=== PATIENT | female | born 2000 | race Hispanic/Latino ===

== ENCOUNTER 2024-10-10 00:37 | Emergency (ER) | payer BC, SELFPAY ==
[2024-10-10 00:44] VITALS: BP 138/80
--- NOTE | 2024-10-10 01:59 | ED.SKININJ ---
HPI-Injury
<HAYDEE Harrell - Last Filed: 10/10/24 03:09>
General
Chief Complaint: Bite
Source: patient
Exam Limitations: none
Time Seen by Provider: 10/10/24 01:58
Nursing documentation reviewed up to this point in time: agreed with
History of Present Illness-Injury
Initial Injury comments:
Pt is a 24 yo F w no significant PMH who presents to the ED with her sister for dog bite on the R hand x 2hours. Pt says she was playing with the dog when it latched onto her hand and broke skin. She states it was bleeding a lot and she is worried
about rabies. She states the dog is UTD on vaccinations and has not shown signs of rabies. Pt states she had her TDap shot last month. Pt denies fever, changes in color of R hand, changes in sensation or feeling in R hand.
Review of Systems
<HAYDEE Harrell - Last Filed: 10/10/24 03:09>
Review of Systems
Allergies reviewed?: Yes
Other source history: family
Constitutional: Denies fever, fatigue or chills
Respiratory: Denies cough or trouble breathing
Cardiac: Denies chest pain
ABD/GI: Denies abdominal pain, nausea or vomiting
Neurological: Denies headache, weakness or numbness
Skin Exam
<HAYDEE Harrell - Last Filed: 10/10/24 03:09>
Laceration
Right Hand:
Length in cm: 1
Orientation: diagonal
Type of Laceration: simple
Any active bleeding?: low grade venous oozing
Distal skin color and temperature: normal-warm & good color
Normal distal neurovascular exam: Yes
Range of motion: full
Phy Exam
<HAYDEE Harrell - Last Filed: 10/10/24 03:09>
General Physical Exam
General Presentation: well appearing and no apparent distress
General age: appears stated age
General Skin: warm
General Habitus: normal
General Mental: alert
General Hydration: appears well hydrated
Cardiovascular Exam
Cardiovascular Exam: regular rate/rhythm
Pulmonary Exam
Pulmonary Exam: lungs clear and no respiratory distress
Musculoskeletal Exam
Musculoskeletal Exam: neuro vasc intact
Course
<HAYDEE Harrell - Last Filed: 10/10/24 03:09>
Orders/Labs/Results
Orders:
Orders
10/10/24 02:15
Amoxicillin 875 mg/Clav 125 mg [Augmentin 875 mg/125 mg] 1 tablet PO NOW STA
Vital Signs
Initial and Last Documented VS:
Initial Vital Signs
Temp Pulse Resp BP Pulse Ox
97.4 F 88 16 138/80 97
10/10/24 00:44 10/10/24 00:44 10/10/24 00:44 10/10/24 00:44 10/10/24 00:44
Last Documented Vital Signs
Temp Pulse Resp BP Pulse Ox
97.4 F 67 16 111/72 98
10/10/24 00:44 10/10/24 02:57 10/10/24 00:44 10/10/24 02:57 10/10/24 02:57
<Apollo Glass DO - Last Filed: 10/10/24 03:03>
Orders/Labs/Results
Orders:
Orders
10/10/24 02:15
Amoxicillin 875 mg/Clav 125 mg [Augmentin 875 mg/125 mg] 1 tablet PO NOW STA
Vital Signs
Initial and Last Documented VS:
Initial Vital Signs
Temp Pulse Resp BP Pulse Ox
97.4 F 88 16 138/80 97
10/10/24 00:44 10/10/24 00:44 10/10/24 00:44 10/10/24 00:44 10/10/24 00:44
Last Documented Vital Signs
Temp Pulse Resp BP Pulse Ox
97.4 F 67 16 111/72 98
10/10/24 00:44 10/10/24 02:57 10/10/24 00:44 10/10/24 02:57 10/10/24 02:57
Procedures
<HAYDEE Harrell - Last Filed: 10/10/24 03:09>
Laceration Closure
Right Palmar Hand:
Status of Wound: clean and bite
Size of Wound in cm: 1
Description of Wound Edges: sharp
Preparation: cleaned with saline
Anesthesia: 1% Lidocaine with epi
Revision/Debridement: routine- no revision
Wound exploration: no tendon involvement
Type of Closure: interrupted sutures
Skin Closure Material: 4-0 nylon
Number of sutures: 3
Additional information:
3 total sutures placed in R palmar hand
<HAYDEE Harrell - Last Filed: 10/10/24 03:09>
*Critical Care Note
Total Time (30-74mins, 75-104mins- exclusive of procedures): Not Applicable
ED Attending Note
<HAYDEE Harrell - Last Filed: 10/10/24 03:09>
-
Portions of this chart may have been created with voice recognition software.� Occasional wrong word or��sound alike� substitutions may have occurred due to the inherent limitations of voice recognition software.
<Apollo Glass DO - Last Filed: 10/10/24 03:03>
ED Attending Note
Patient seen and examined by attending physician: Yes
I performed the substantive portion of visit, reviewed & personally made and approve the management plan that is documented in note by myself or [place].: Yes
ED Attending Note:
Pleasant 24-year-old female who presents after getting bitten on the right hand by her sisters dog. Dog is practically up-to-date on all of his shots. Sister states that he has been due for updates for the last month. Dog is otherwise healthy.
Patient was actively playing with the dog and things got a little rough. Patient states that her tetanus shot is recent within the last few months. Patient was seen in conjunction with the PA student. I have reviewed and agree with the history
and treatment plan presented. On my independent physical exam, patient is awake, alert, and oriented x3 minimal acute distress. Right hand has 3 superficial puncture wounds on the palm and one very superficial puncture room on the dorsum of the
hand. At this point we will put 1 suture in each of the puncture wounds. Patient will be started on Augmentin.
Discharge Plan
Departure
Prescriptions:
New
amoxicillin-pot clavulanate 875-125 mg tablet
1 tab PO BID Qty: 20 0RF
Referrals:
UNKNOWN - PT DOES,NOT KNOW [Family Provider] -
Interventions
Interventions:
*Risk Screen - Suicide Last Done: 10/10/24 01:19
*General Assessment Last Done: 10/10/24 01:19
*Neglect/Abuse Screening Last Done: 10/10/24 01:19
*ED COVID-19 Vaccine History Last Done: 10/10/24 01:19
ED-Skin Assessment Last Done: 10/10/24 01:23
Discharge Date and Time
Print Language: TRINIDADIAN
[2024-10-10] MEDS: AUGMENTIN 875 MG/125 MG 1 TABLET PO (02:55)
[2024-10-10 02:57] VITALS: BP 111/72
== END 2024-10-10 03:10 | disposition home or self-care (01) ==
LOC: EMR 00:37
PROVIDERS: EMERGENCY PHYSICIAN Student in an Organized Health Care Education/Training Program
DX: S61.431A Puncture wound without foreign body of right hand, initial encounter (principal); W54.0XXA Bitten by dog, initial encounter
CPT/HCPCS: 12001; 99283

== ENCOUNTER 2024-10-14 20:42 | Inpatient (IN) | payer BC, SELFPAY ==
[2024-10-14 16:09] VITALS: BP 127/87
[2024-10-14 16:32] LABS: % Basophils 0.6 % (0-2); % Eosinophils 0.6 % (0-6); % Immature Granulocytes 0.4 % (0-0.5); % Monocytes 6.5 % (1.7-9.3); % Neutrophils 67.9 % (42.2-75.2); Absolute Basophils 0.1 10^3/uL (0-0.2); Absolute Eosinophils 0.1 10^3/uL (0-0.7); Absolute Lymphocytes 2.5 10^3/uL (1.2-3.4); Absolute Monocytes 0.7 10^3/uL (0.1-0.6); Absolute Neutrophils 7.2 10^3/uL (1.4-6.5); Hematocrit 39.6 % (37.0-47.0); Hemoglobin 13.3 g/dL (12.0-16.0); Mean Corp Hgb Conc. 33.6 g/dL (33.0-37.0); Mean Corpuscular Hgb 30.8 pg (27.0-31.0); Mean Corpuscular Volume 91.7 fL (81.0-99.0); Mean Platelet Volume 9.3 fL (7.4-10.4); Nucleated Red Blood Cells % 0 %; Platelet Count 315 10^3/uL (130-400); Red Blood Cell Count 4.32 10^6/uL (4.20-5.40); Red Cell Dist. Width 12.3 % (11.5-14.5); White Blood Cell Count 10.6 10^3/uL (4.8-10.8)
[2024-10-14 16:51] LABS: ALT (SGPT) 34 U/L (0-35); AST (SGOT) 41 U/L (14-36); Albumin 4.3 g/dl (3.5-5.0); Alkaline Phosphatase 101 U/L (38-126); Blood Urea Nitrogen 12 mg/dl (7-17); Calcium 9.1 mg/dl (8.4-10.2); Carbon Dioxide 27 mmol/L (22-30); Chloride 101 mmol/L (98-107); Glucose 80 mg/dl (70-99); Potassium 3.8 mmol/L (3.5-5.1); Sodium 137 mmol/L (135-145); Total Bilirubin 0.5 mg/dl (0.2-1.3); Total Protein 7.8 g/dl (6.3-8.2); eGFR > 60.00
--- NOTE | 2024-10-14 17:58 | ED.GENMED ---
History of Present Illness
<Rona Sanchez PA-C - Last Filed: 10/14/24 23:11>
General
Chief Complaint: Skin Problem
Source: patient
Exam Limitations: none
Time Seen by Provider: 10/14/24 17:58
Nursing documentation reviewed up to this point in time: agreed with
History of Present Illness
History of Present Illness:
24-year-old female with no past medical history presents to the emergency department today with concerns of right hand swelling and white spots following the dog bite injury. Patient states that she was bitten by her dog he was up-to-date on its
vaccinations around 7 days ago. She had a few wounds on the anterior surface of her right hand. She was seen in our emergency department and she had her wound sutured and was started on a course of Augmentin. Patient is nearly finished a course
of Augmentin but noted that she started to have white spots under the sutures and noticed some mild drainage. She also started to have swelling in her hand and noticed that the swelling traveled down her arm. She is unable to extend her fourth
finger. She denies any fevers or chills, she denies any nausea or vomiting. She denies any abdominal pain.
Review of Systems
<Rona Sanchez PA-C - Last Filed: 10/14/24 23:11>
Review of Systems
All Other Systems: ROS reviewed and negative except as documented in HPI and ROS
Phy Exam
<Rona Sanchez PA-C - Last Filed: 10/14/24 23:11>
Physical Exam
Physical Exam:
General: Patient is well appearing and in no acute distress; non-toxic
Skin: Scattered pustules noted with overlying erythema to right hand, no axillary lymphadenopathy
Head: Normocephalic, atraumatic
Eyes: Sclera non-icteric. EOMs intact.
Cardiac: Regular rate and rhythm, no murmur
Peripheral Vascular: No lower EXTR swelling or edema, thickened swelling noted to right hand extending up to mid humerus
Pulm: Normal respiratory effort
Abdomen: No abdominal tenderness
Musculoskeletal: Tenderness palpation along the flexor sheath of the fourth finger, extreme pain with extension of the fourth finger
Neuro: CN II-XII intact, no focal neurologic deficits.
Psychiatric: Appropriate mood and affect.
Course
<Rona Sanchez PA-C - Last Filed: 10/14/24 23:11>
Orders/Labs/Results
Orders:
Orders
10/14/24 16:19
CMP [Comprehensive Metabolic Panel] Urgent
Complete Blood Count/With Diff Urgent
10/14/24 18:31
Ketorolac [Toradol] 15 mg IV NOW STA
10/14/24 18:38
Ampicillin/Sulbactam 3 G [Unasyn] 3 gm 0.9% Sodium Chloride 100 ml [Nss] 100 ml IV NOW
10/14/24 19:13
CR Forearm - Right 2 View Urgent
Comment:
Reason For Exam: right arm forearm
CR Hand - Right 2 Views Urgent
Comment:
Reason For Exam: right hand swelling
10/14/24 20:33
Tetanus/Diphth/Acelpertussis [Adacel] 0.5 ml IM .ONCE ONE
10/14/24 20:35
Admit/Transfer Patient As Directed
Co-Sign Provider:
Level of Care: Inpatient admission
Assign to:: Medical/Surgical
Physician / Group: hospitalist
Diagnosis: hand injury
Reason for Hospitalization: hand abscess
Expected length of stay greater than two midnights?: Yes
ELOS- Estimated Length of Stay in days: 2
I certify the patient meets the requirements for IP care: Yes
PRN Pain Medication Management As Directed
May give lesser potent ordered pain med per pt: Yes
preference::
Protocol:: Medication orders for pain may be administered in a
manner that supports deferring to patient preference
when the pt is:
- Requesting an ordered lesser potent pain medication.
Least to most potent pain medications are defined
as: acetaminophen < NSAID < tramadol < opioids
(morphine, oxycodone, hydromorphone).
- Requesting a lesser dose of the same medication IF
ORDERED.
- Requesting a less intrusive route of administration
if both routes are prescribed by the provider (PO <
IV).
10/14/24 20:36
Code Status As Directed
Resuscitation Status: Full Code
10/14/24 23:48
Acetaminophen [Tylenol] 650 mg PO Q4HPRN PRN
Bisacodyl [Dulcolax] 10 mg RECTAL [id number] PRN
Docusate W/Senna [Senokot-S] 1 tablet PO BIDPRN PRN
HYDROmorphone [Dilaudid] 0.5 mg IV Q4HPRN PRN
Ondansetron Injectable [Zofran] 4 mg IV Q6HPRN PRN
Polyethylene Glycol Powder [Miralax] 17 grams PO DAILYPRN PRN
10/14/24 23:48
Activity As Directed
Activity Level: With Assistance
Pneumatic Compression Sleeves As Directed
Type: Knee high
Vital Signs As Directed
Frequency: Per unit guidelines
DX Deep Vein Thrombosis Video Routine
10/15/24 00:00
Ampicillin/Sulbactam 3 G [Unasyn] 3 gm 0.9% Sodium Chloride 100 ml [Nss] 100 ml IV Q6H
10/15/24 01:00
Ketorolac [Toradol] 10 mg IV Q6HPRN PRN
10/15/24 Breakfast
NPO
Allow oral meds: Yes
Allow clear liquids: Sips of Clears
Basic Metabolic Panel IN AM
Complete Blood Count/No Diff IN AM
PTT IN AM
Prothrombin Time IN AM
10/16/24 18:00
Enoxaparin Sodium [Lovenox] 40 mg SC QPM
Abnormal Lab Results
10/14/24
16:19
Absolute Neuts (auto) 7.2 H 10^3/uL
(1.4-6.5)
Absolute Monos (auto) 0.7 H 10^3/uL
(0.1-0.6)
AST 41 H U/L
(14-36)
10/14/24 16:19
10/14/24 16:19
Vital Signs
Initial and Last Documented VS:
Initial Vital Signs
Temp Pulse Resp BP Pulse Ox
98.5 F 77 18 127/87 98
10/14/24 16:09 10/14/24 16:09 10/14/24 16:09 10/14/24 16:09 10/14/24 16:09
Last Documented Vital Signs
Temp Pulse Resp BP Pulse Ox
98.2 F 81 18 117/80 100
10/15/24 00:06 10/15/24 00:06 10/15/24 00:06 10/15/24 00:06 10/15/24 00:06
<Ameya Mitchell, DO - Last Filed: 10/15/24 02:43>
Orders/Labs/Results
Orders:
Orders
10/14/24 16:19
CMP [Comprehensive Metabolic Panel] Urgent
Complete Blood Count/With Diff Urgent
10/14/24 18:31
Ketorolac [Toradol] 15 mg IV NOW STA
10/14/24 18:38
Ampicillin/Sulbactam 3 G [Unasyn] 3 gm 0.9% Sodium Chloride 100 ml [Nss] 100 ml IV NOW
10/14/24 19:13
CR Forearm - Right 2 View Urgent
Comment:
Reason For Exam: right arm forearm
CR Hand - Right 2 Views Urgent
Comment:
Reason For Exam: right hand swelling
10/14/24 20:33
Tetanus/Diphth/Acelpertussis [Adacel] 0.5 ml IM .ONCE ONE
10/14/24 20:35
Admit/Transfer Patient As Directed
Co-Sign Provider:
Level of Care: Inpatient admission
Assign to:: Medical/Surgical
Physician / Group: hospitalist
Diagnosis: hand injury
Reason for Hospitalization: hand abscess
Expected length of stay greater than two midnights?: Yes
ELOS- Estimated Length of Stay in days: 2
I certify the patient meets the requirements for IP care: Yes
PRN Pain Medication Management As Directed
May give lesser potent ordered pain med per pt: Yes
preference::
Protocol:: Medication orders for pain may be administered in a
manner that supports deferring to patient preference
when the pt is:
- Requesting an ordered lesser potent pain medication.
Least to most potent pain medications are defined
as: acetaminophen < NSAID < tramadol < opioids
(morphine, oxycodone, hydromorphone).
- Requesting a lesser dose of the same medication IF
ORDERED.
- Requesting a less intrusive route of administration
if both routes are prescribed by the provider (PO <
IV).
10/14/24 20:36
Code Status As Directed
Resuscitation Status: Full Code
10/14/24 23:48
Acetaminophen [Tylenol] 650 mg PO Q4HPRN PRN
Bisacodyl [Dulcolax] 10 mg RECTAL [id number] PRN
Docusate W/Senna [Senokot-S] 1 tablet PO BIDPRN PRN
HYDROmorphone [Dilaudid] 0.5 mg IV Q4HPRN PRN
Ondansetron Injectable [Zofran] 4 mg IV Q6HPRN PRN
Polyethylene Glycol Powder [Miralax] 17 grams PO DAILYPRN PRN
10/14/24 23:48
Activity As Directed
Activity Level: With Assistance
Pneumatic Compression Sleeves As Directed
Type: Knee high
Vital Signs As Directed
Frequency: Per unit guidelines
DX Deep Vein Thrombosis Video Routine
10/15/24 00:00
Ampicillin/Sulbactam 3 G [Unasyn] 3 gm 0.9% Sodium Chloride 100 ml [Nss] 100 ml IV Q6H
10/15/24 01:00
Ketorolac [Toradol] 10 mg IV Q6HPRN PRN
10/15/24 Breakfast
NPO
Allow oral meds: Yes
Allow clear liquids: Sips of Clears
Basic Metabolic Panel IN AM
Complete Blood Count/No Diff IN AM
PTT IN AM
Prothrombin Time IN AM
10/16/24 18:00
Enoxaparin Sodium [Lovenox] 40 mg SC QPM
Abnormal Lab Results
10/14/24
16:19
Absolute Neuts (auto) 7.2 H 10^3/uL
(1.4-6.5)
Absolute Monos (auto) 0.7 H 10^3/uL
(0.1-0.6)
AST 41 H U/L
(14-36)
10/14/24 16:19
10/14/24 16:19
Vital Signs
Initial and Last Documented VS:
Initial Vital Signs
Temp Pulse Resp BP Pulse Ox
98.5 F 77 18 127/87 98
10/14/24 16:09 10/14/24 16:09 10/14/24 16:09 10/14/24 16:09 10/14/24 16:09
Last Documented Vital Signs
Temp Pulse Resp BP Pulse Ox
98.2 F 81 18 117/80 100
10/15/24 00:06 10/15/24 00:06 10/15/24 00:06 10/15/24 00:06 10/15/24 00:06
Stefanielt;Rona Sanchez PA-C - Last Filed: 10/14/24 23:11>
MDM/Problems Addressed
Differential Diagnosis Includes:
See below
MDM/Problems Addressed:
NUMBER AND COMPLEXITY OF PROBLEMS ADDRESSED AT THE ENCOUNTER
� Chronic conditions affecting care: N/A
� Acute Exacerbation and/or Progression of Chronic Illness: N/A
� Differential Diagnosis includes: Differentials include cellulitis, erysipelas, abscess, flexor tenosynovitis
AMOUNT AND/OR COMPLEXITY OF DATA TO BE REVIEWED AND ANALYZED
� I performed an independent evaluation of and my interpretation is:
X-rays: X-ray demonstrates no acute fracture or dislocation
Laboratory Studies: No leukocytosis, CBC, CMP unremarkable
Other:
� Review of other/old records: Reviewed previous ER physician documentation from 10/10/2024, patient had stitches placed in right bailey, had 1 suture placed in each puncture wound r hand
� Clinical information was obtained by an independent historian: Friend present with patient also provide history of present illness
� Prescriptions/Medications Considered but not given: N/A
� Further testing considered but not performed: N/A
RISK OF COMPLICATIONS AND/OR MORBIDITY OR MORTALITY OF PATIENT MANAGEMENT
� Social determinants of health affecting care: None
� Discussion with other providers: ER attending
� Escalation of care including admission/observation vs risk of discharge considered:
24-year-old female with no past medical history presents emergency department today with redness and swelling of her hand following a dog bite. She was seen in the emergency department on October 10 and had sutures placed in her puncture wounds.
She has started to develop significant swelling and pustules. She has no fevers or chills. Her physical exam is concerning for flexor tenosynovitis. Patient will likely require surgical washout. I did speak to orthopedic datastage consultant on the phone,
he is aware of case. Per EMRA recommendations, patient will be started on Unasyn. Discussed case with hospitalist. Patient referred for admission.
<Rona Sanchez PA-C - Last Filed: 10/14/24 23:11>
*Critical Care Note
Total Time (30-74mins, 75-104mins- exclusive of procedures): Not Applicable
ED Attending Note
<Rona Sanchez PA-C - Last Filed: 10/14/24 23:11>
-
Portions of this chart may have been created with voice recognition software.� Occasional wrong word or��sound alike� substitutions may have occurred due to the inherent limitations of voice recognition software.
<Ameya Mitchell DO - Last Filed: 10/15/24 02:43>
ED Attending Note
Patient seen and examined by attending physician: Yes
I performed the substantive portion of visit, reviewed & personally made and approve the management plan that is documented in note by myself or [place].: Yes
ED Attending Note:
Patient is a 24-year-old [id number] female who was bit by a dog on her palmar right hand and had the wound sutured. Patient returns with increasing pain and swelling radiating proximally. On physical exam patient's palm is erythematous
with swelling and pustules with pain on any range of motion. Neurovascularly tendons intact. The swelling and erythema progressed on the ulnar aspect of the left forearm proximally. Patient has no axillary or cervical nodes. Looking at the
patient's hand she has a cellulitis from a dog bite. Patient will need debridement and irrigation and probable IV antibiotics.
Discharge Plan
Departure
Patient Disposition: Admit
Date of Disposition: 10/14/24
Time of Disposition: 19:51
Admit to: Med/Surg
Presentation/result/management discussed w/ accepting MD/DO: Hospitalist
Patient with high blood pressure during this ER visit?: Yes
Condition: Fair
Discharge Problem:
Infected dog bite of hand
Interventions
Interventions:
*Risk Screen - Suicide Last Done: 10/15/24 01:03
*General Assessment Last Done: 10/14/24 16:09
*Neglect/Abuse Screening Last Done: 10/14/24 18:07
*ED COVID-19 Vaccine History Last Done: 10/14/24 16:09
*Nursing Disposition Last Done: 10/14/24 23:47
ED-Skin Assessment Last Done: 10/14/24 18:07
Discharge Date and Time
Discharge Date/Time: 10/14/24 23:48
[2024-10-14] MEDS: TORADOL 15 MG IV (18:37)
[2024-10-14 18:42] VITALS: BP 123/81
[2024-10-14] MEDS: UNASYN IV (18:45)
[2024-10-14 19:00] VITALS: BP 103/72
--- NOTE | 2024-10-14 20:21 | HPS.HSE ---
Family Physician
-
Family Physician: * NONE
Chief Complaint
-
Animal bite and abscess
History of Present Illness
This is a 24-year-old female without any known past medical history presenting to the emergency department with right hand swelling tenderness and redness.
Patient had a dog bite about 5 days ago. She was seen in the emergency department. At that time she underwent evaluation cleaning and was started on Augmentin. She did not receive any tetanus. Last tetanus shot was in 2019 following a bug bite
at that time.
Patient reports since then she has had swelling and emanation of pus material on both the plantar and dorsal surfaces of her hand. No fevers or chills. She has pain with flexion or extension.
In the ED here today she was afebrile, blood pressure was 103/72. She had a white count of 10.6 K hemoglobin and platelets were normal, BUN electrolytes and creatinine were all within normal limits. X-rays of the hand and forearm are normal.
Medical History
Past Medical History
Past Medical History: Reports None
Past Surgical History: Reports None
Social History
Tobacco: Vaping
Alcohol: Occasional
Drug: None
Personal: Single
Living: With Family
Family History
Family History: Not pertinent
Allergies / Home Medications
Allergies reflects when Allergies were last updated in [facility].
Home Medications with original date entered in [facility]
Allergy/Medication List:
Allergies
Allergy/AdvReac Type Severity Reaction Status Date / Time
No Known Allergies Allergy Verified 10/14/24 16:09
Home Medications
amoxicillin 875 mg-potassium clavulanate 125 mg tablet 1 tab PO BID #20 tabs 10/10/24
Review of Systems
-
History Source: Patient
Constitutional: Reports No Symptoms
EENT: Reports No Symptoms
Respiratory: Reports No Symptoms
Cardiac: Reports No Symptoms
Abdomen/GI: Reports No Symptoms
: Reports No Symptoms
Musculoskeletal: Reports Joint Swelling
Skin: Reports No Symptoms
Neurological: Reports No Symptoms
Endocrine: Reports No Symptoms
Hematologic/Lymphatic: Reports No Symptoms
Psych: Reports No Symptoms
Physical Exam
Vital Signs
Vital Signs
Temp Pulse Resp BP Pulse Ox
98.5 F 77 18 103/72 98
10/14/24 16:09 10/14/24 16:09 10/14/24 16:09 10/14/24 19:00 10/14/24 19:15
Physical Exam
General: Well Developed, Well Nourished and No Apparent Distress
HEENT: NormoCephalic, Anicteric and Moist mucous membranes
Respiratory: Clear
Cardiac: S1/S2 and Regular Rhythm
Breast: Deferred by me
GI: Soft, Non Tender, Non Distended and Normal Bowel Sounds
Rectal: Deferred by Provider
Genito-urinary: Deferred by me
Musculoskeletal: No Clubbing, No Cyanosis and Other (Right ankle swelling. 2-3 notable eruptions on the palmar and dorsal surface of the hand. No immediate drainage.)
Skin: Warm
Neuro: AO x 3 and Nonfocal/grossly intact
Hematologic/Lymphatic: No Lymphadenopathy
Psych: Calm
Laboratory Results
-
10/14/24 16:19
10/14/24 16:19
Laboratory Results
Total Bilirubin 0.5 mg/dl (0.2-1.3) 10/14/24 16:19
AST 41 U/L (14-36) H 10/14/24 16:19
ALT 34 U/L (0-35) 10/14/24 16:19
Alkaline Phosphatase 101 U/L (38-126) 10/14/24 16:19
Data Reviewed
-
Diagnostic Radiology: Report Reviewed by me
Lab Data: Labs Reviewed by me
Old Records: Reviewed
Impression/Plan
-
IMPRESSION:
Right hand abscess with possible flexor tenosynovitis following a dog bite.
PLAN:
Infected dog bite of the hand - no bone injury, no foreign body.
- admit to med surg
- will need possible debridement and drainage, ortho aware
- most patient's don't need mrsa coverage, continue unasyn for now
- pain control
- npo after midnight
- no rabies PEP as animal is up to date
- given tetanus shot now
DVT PPX - SCDs, hold medical ac for surgery, start on tuesday evening
Code status - full code
[2024-10-14] MEDS: ADACEL 0.5 ML IM (20:54)
[2024-10-14 22:38] VITALS: BP 100/55
[2024-10-15] VITALS (9 sets, daily range): BP systolic 108–126; BP diastolic 67–80; BMI 20.5
[2024-10-15] MEDS: UNASYN IV ×4 (01:19→19:20)
[2024-10-15] MEDS: FLUSH (NSS) 2 FLUSH IV (01:22)
[2024-10-15] MEDS: FLUSH (NSS) 1 FLUSH IV (06:10)
--- NOTE | 2024-10-15 07:15 | W.PN.UPDATE ---
Update Note
Progress Note Update
Patient seen and examined this morning. Plan to obtain advanced imaging to evaluate for deep abscess. Likely will require formal operative irrigation debridement later today pending further evaluation. Please keep NPO.
Formal consult to follow
--- NOTE | 2024-10-15 08:02 | W.PN.HOSP.TC ---
Today's Communication/Plan
-
see bold
Assessment / Plan
Assessment / Plan
Pt seen and examined with nurse Katlyn Esquivel present at bedside for the entirety of the interview and physical exam:
Gen: NAD, AAOx3.
Eyes: EOMI, PERRLA, no scleral icterus.
Neck: supple.
CV: RRR, +S1/S2, no m/r/g.
Resp: CTAB, no rales, wheezes, or rhonchi.
Skin: R hand with cellulitis, soft tissue edema and palmar pustules.
Neuro: CN 2-12 intact, non-focal.
Psych: Normal mood and affect.
MRI R hand:
1. SEVERE DIFFUSE CELLULITIS throughout the right hand and wrist.
2. SEVERE ACUTE INFECTIOUS MYOSITIS (most pronounced in the hypothenar muscles).
3. 2.8 cm ABSCESS extending from the palmar skin surface into the hypopharynx muscles.
4. Moderate-sized 4th MCP joint effusion suggesting SEPTIC ARTHRITIS.
5. Mild bone marrow signal abnormality in the proximal phalanx of the ring finger suggesting MILD ACUTE OSTEOMYELITIS.
6. Mild septic tenosynovitis in the flexor tendons of the ring and middle fingers.
Infected dog bite of the R hand (abscess/myositis/cellulitis/septic arthritis):
-s/p tetanus shot
-appreciate ortho, will need I&D in [place]
-cont Unasyn, c/s ID
-pain control
-NPO
FULL/SCDs
Anticipated Discharge: 24 - 48 hours
Subjective/Interval History
-
Date of Service: October 15, 2024
No new complaints.
Objective Data
-
Labs:
Laboratory Results
10/15/24
06:00
WBC Pending
Hgb Pending
Hct Pending
Plt Count Pending
PT Pending
INR Pending
APTT Pending
Sodium Pending
Potassium Pending
Chloride Pending
Carbon Dioxide Pending
BUN Pending
Creatinine Pending
Glucose Pending
Calcium Pending
Vital Signs:
Vital Signs
Temp Pulse Resp BP Pulse Ox
98.2 F 81 18 117/80 100
10/15/24 00:06 10/15/24 00:06 10/15/24 00:06 10/15/24 00:06 10/15/24 00:20
I&O
10/14/24 10/15/24 10/16/24
06:59 06:59 06:59
Intake Total 340 / 340
Balance 340 / 340
[2024-10-15 08:18] LABS: Hemoglobin 12.2 g/dL (12.0-16.0); Mean Corp Hgb Conc. 33.9 g/dL (33.0-37.0); Mean Corpuscular Hgb 30.7 pg (27.0-31.0); Mean Corpuscular Volume 90.7 fL (81.0-99.0); Mean Platelet Volume 9.4 fL (7.4-10.4); Platelet Count 263 10^3/uL (130-400); Red Blood Cell Count 3.97 10^6/uL (4.20-5.40); Red Cell Dist. Width 12.2 % (11.5-14.5)
[2024-10-15 08:23] LABS: INR 1.26; PT 16.1 Sec (11.4-14.6)
[2024-10-15 08:24] LABS: APTT 33.1 Sec (23.4-35.0)
[2024-10-15 09:03] LABS: Blood Urea Nitrogen 12 mg/dl (7-17); Calcium 8.8 mg/dl (8.4-10.2); Carbon Dioxide 26 mmol/L (22-30); Chloride 106 mmol/L (98-107); Estimated Creatinine Clearance 107 ml/min; Glucose 93 mg/dl (70-99); Potassium 3.8 mmol/L (3.5-5.1); Sodium 138 mmol/L (135-145); eGFR > 60.00
[2024-10-15 10:13] LABS: Erythrocyte Sed Rate 34 mm/hour (0-20)
--- NOTE | 2024-10-15 16:43 | CON.ID ---
Consultation
-
Date/Time Consultation Requested: 10/15/24 8:07
Date/Time Consultation Performed: 10/15/24 16:44
Requesting Provider: Dr Babb
Performing Provider: Dr Mckeon
Reason for Consultation: animal bite
Chief Complaint / Past History
Chief Complaint
Animal bite and abscess
History of Present Illness
Ms Zavala is a 24 year old female without significant history who presented here 10/14 about 5 days after a dog bit, she was initially seen in the ER, underwent cleaning and was started on augmentin. no tetanus shot given - last shot 2019; since
then with swelling and drainage of purulent material for the plantar and dorsal surfaces of the hand - no fevers or chills. + pain with extension.
Since arrival here she has been afebrile, bp stable, wbc initially 10.6 now 8.0, no left shift, ESR 34, cr 0.7, crp 33, MRI: with and w/o contrast: myositis, 2.8 cm abscess, 4th mcp septic arthritis, proximal right finger osteo, tenosynovitis.
Past History
Past Medical History: None
Past Surgical History: None
Allergy History:
No Known Allergies Allergy (Verified 10/14/24 16:09)
Medications Reviewed: Yes
Social History
Tobacco: Vaping
Alcohol: Occasional
Drug: None
Family History
Family History: Not Pertinent
Review of Systems
Review of Systems
General: Negative Fever or Chills
All systems: All other systems were reviewed and were negative
Vital Signs
Temp Pulse Resp BP Pulse Ox
98.6 F 64 14 108/69 99
10/15/24 15:30 10/15/24 15:30 10/15/24 15:30 10/15/24 15:30 10/15/24 15:30
Physical Exam
Physical Exam
Constitutional: No Acute Distress
Cardiovascular: Regular Rate and S1/S2; Negative Murmur or Rub
Pulmonary: Clear and Symmetric; Negative Wheezes, Rales or Rhonchi
Gastrointestinal: Soft, Non Tender, Non Distended and Normal Bowel Sounds
Skin: Warm and Dry; Negative Rash or Jaundice
Wound: Other (right hand swollen tender, purulent drainage from multiple puncture wounds)
Neurological: Awake
Lab / Diagnostic Study Results
10/15/24 08:02
10/15/24 08:02
Abs Immat Gran (auto) 0.0 10^3/uL (0-0.05) 10/14/24 16:19
Absolute Neuts (auto) 7.2 10^3/uL (1.4-6.5) H 10/14/24 16:19
Absolute Lymphs (auto) 2.5 10^3/uL (1.2-3.4) 10/14/24 16:19
Absolute Monos (auto) 0.7 10^3/uL (0.1-0.6) H 10/14/24 16:19
Absolute Basos (auto) 0.1 10^3/uL (0-0.2) 10/14/24 16:19
Immature Gran % 0.4 % (0-0.5) 10/14/24 16:19
Neutrophils % 67.9 % (42.2-75.2) 10/14/24 16:19
Lymphocytes % 24.0 % (20.5-51.1) 10/14/24 16:19
Monocytes % 6.5 % (1.7-9.3) 10/14/24 16:19
Eosinophils % 0.6 % (0-6) 10/14/24 16:19
Basophils % 0.6 % (0-2) 10/14/24 16:19
ESR 34 mm/hour (0-20) H 10/15/24 08:02
PT 16.1 Sec (11.4-14.6) H 10/15/24 08:02
INR 1.26 10/15/24 08:02
C-Reactive Protein 33.40 mg/L (0.0-10.00) H 10/15/24 08:02
Assessment / Plan
Myositis, 2.8 cm abscess, 4th mcp septic arthritis, proximal right finger osteo, tenosynovitis
Dog bite
- blood cultures x2
- cultures aerobic and anaerobic from draining wound
- mrsa screen
- recommend washout
- please send aerobic and anaerobic cultures from the OR
- elevation as tolerated, too tender for compression at this time
Care Review
Plan reviewed with: Physician (Dr Kessler - for the OR)
[2024-10-15] MEDS: DILAUDID 0.5 MG IV ×2 (19:49→20:03)
--- NOTE | 2024-10-15 21:00 | PTCARENOTE ---
Pt received from PACU at 2004. Pt w/ post op dressing and alicja wrap to RUE. VSS, No c/o pain, and pt aaox3. Pt instructed to ring staff to use bathroom. Call sanchez within reach and plan of care ongoing.
[2024-10-16] MEDS: UNASYN IV ×5 (00:04→23:44)
[2024-10-16] MEDS: TORADOL 10 MG IV ×3 (02:39→18:14)
[2024-10-16 03:45] VITALS: BP 107/58
[2024-10-16 07:25] VITALS: BP 109/65
--- NOTE | 2024-10-16 08:03 | W.PN.UPDATE ---
Update Note
Progress Note Update
POD #1 from I and D
R hand NVI
Begin wound care
Cxs pending
Continue IV antibx
thanks
GGMD
--- NOTE | 2024-10-16 08:14 | W.PN.HOSP.TC ---
Today's Communication/Plan
-
see bold
Assessment / Plan
Assessment / Plan
Pt seen and examined with nurse Judy Thibodeaux present at bedside for the entirety of the interview and physical exam:
Gen: NAD, AAOx3.
Eyes: EOMI, PERRLA, no scleral icterus.
Neck: supple.
CV: remains RRR, +S1/S2, no m/r/g.
Resp: remains CTAB, no rales, wheezes, or rhonchi.
Skin: R hand with C/D/I dressing
Neuro: CN 2-12 intact, non-focal.
Psych: Normal mood and affect.
10/15/24 19:29 Hand - Right Gram Stain - Preliminary
10/15/24 17:17 Abscess Gram Stain - Preliminary
MRI R hand:
1. SEVERE DIFFUSE CELLULITIS throughout the right hand and wrist.
2. SEVERE ACUTE INFECTIOUS MYOSITIS (most pronounced in the hypothenar muscles).
3. 2.8 cm ABSCESS extending from the palmar skin surface into the hypopharynx muscles.
4. Moderate-sized 4th MCP joint effusion suggesting SEPTIC ARTHRITIS.
5. Mild bone marrow signal abnormality in the proximal phalanx of the ring finger suggesting MILD ACUTE OSTEOMYELITIS.
6. Mild septic tenosynovitis in the flexor tendons of the ring and middle fingers.
Infected dog bite of the R hand (abscess/myositis/cellulitis/septic arthritis):
-s/p tetanus shot
-s/p I&D, debridement of abscess about the right palm and incision and drainage of septic arthritis of the ring metatarsophalangeal joint in OR on 10/15/24
-cont Unasyn as per ID
-pain control
-follow cultures
FULL/SCDs
Anticipated Discharge: 24 - 48 hours
Subjective/Interval History
-
Date of Service: October 16, 2024
No new complaints.
Objective Data
-
Vital Signs:
Vital Signs
Temp Pulse Resp BP Pulse Ox
97.8 F 64 16 109/65 99
10/16/24 07:25 10/16/24 07:25 10/16/24 07:25 10/16/24 07:25 10/16/24 07:25
I&O
10/15/24 10/16/24 10/17/24
06:59 06:59 06:59
Intake Total 340 / 340 360 / 360
Balance 340 / 340 360 / 360
[2024-10-16] MEDS: BACITRACIN OINTMENT 1 APPLIC TOPICAL (09:09)
--- NOTE | 2024-10-16 09:35 | PN.CDI ---
CDI
- -
CDI:
Physician Documentation Request
Admit Date: 10/14/24 20:42
Dear Doctor Diamond,
Please review the following and provide your response in the progress notes.
Clinical Indicators:
- 10/15 Op Report 'Incision and drainage, debridement of abscess'
- 'I then debrided all devitalized soft tissue down to the level of flexor tendon'
Could you provide, in the progress notes further clarification regarding the debridement.
Please specify the type of debridement performed:
1. Excisional Debridement - defined as removal by excision of devitalized tissue, necrosis or slough
2. Non-excisional debridement - defined as removal of devitalized tissue, necrosis or slough by such methods as irrigation, brushing, scrubbing or washing.
For excisional or non-excisional, please also include:
1. Depth of debridement (skin, subcutaneous tissue, fascia, muscle, bone etc)
2. Size and appearance of the wound (L, W, D, color of wound, drainage)
Use of terms such as suspected, likely, concern for, or probable (associated with a specific diagnosis that is being evaluated, monitored, or treated as if it exists) are acceptable and can be coded in the inpatient setting, when documented at the
time of discharge.
Thank you,
Tobias Schuler RN
CDI Specialist
Please use your independent medical judgment in providing your response.
[2024-10-16 11:02] VITALS: BP 111/57
--- NOTE | 2024-10-16 14:56 | CM ---
Luanne was admitted with an infected hand due to a dog bite. She had just been moved to a private room and was trying to sleep in bed with her own blanket and a stuffed animal.
She is (I) ambulation and adls; lives with her mother and father in a 1 story home with 3 entry steps.
I&D done yesterday and she is receiving IV abx and wound care. ID recommends washout.
Plan: CM to follow for discharge planning needs. Watch for home IV abx and wound care needs.
[2024-10-16 15:16] VITALS: BP 101/54
--- NOTE | 2024-10-16 15:24 | W.PN.ID1 ---
Date of Service
Date of Service: October 16, 2024
Today's Communication
- follow OR cultures
- plan to set up for course of IV antibiotics x 6 weeks - this is not feasible until 10/18
- PICC
- continue unasyn pending OR cultures - to be reviewed 10/18
Assessment / Plan
Myositis, 2.8 cm abscess, 4th mcp septic arthritis, proximal right finger osteo, tenosynovitis
Dog bite
- blood cultures x2
- cultures aerobic and anaerobic from draining wound
- mrsa screen positive
- s/p washout 10/15; findings notable for early osteomyelitis
- follow OR cultures
- plan to set up for course of IV antibiotics x 6 weeks - this is not feasible until 10/18
- PICC
- continue unasyn pending OR cultures - to be reviewed 10/18
Chief Complaint
-: Other (cellulitis, myositis, septic joint)
Subjective / Review of Systems
afebrile
bp stable
s/p debridement
Vital Signs / Physical Exam
Vital Signs
Vital Signs
Temp Pulse Resp BP Pulse Ox
98.5 F 66 17 101/54 97
10/16/24 15:16 10/16/24 15:16 10/16/24 15:16 10/16/24 15:16 10/16/24 15:16
Physical Exam
Constitutional: No Acute Distress
Cardiovascular: Regular Rate and S1/S2; Negative Murmur or Rub
Pulmonary: Clear and Symmetric; Negative Wheezes or Rales
Gastrointestinal: Soft, Non Tender, Non Distended and Normal Bowel Sounds
Skin: Warm and Dry; Negative Rash or Jaundice
Objective Data
Lab Data
Lab Results
10/15/24 08:02
10/15/24 08:02
ESR 34 mm/hour (0-20) H 12/23/24 08:02
PT 16.1 Sec (11.4-14.6) H 10/15/24 08:02
INR 1.26 10/15/24 08:02
APTT 33.1 Sec (23.4-35.0) 10/15/24 08:02
Estimated Creat Clear 107 ml/min 10/15/24 08:02
Total Bilirubin 0.5 mg/dl (0.2-1.3) 10/14/24 16:19
AST 41 U/L (14-36) H 10/14/24 16:19
ALT 34 U/L (0-35) 10/14/24 16:19
Alkaline Phosphatase 101 U/L (38-126) 10/14/24 16:19
C-Reactive Protein 33.40 mg/L (0.0-10.00) H 10/15/24 08:02
Most recent labs reviewed.
Micro Results:
10/16/24 09:07 Nasal Screen MRSA (PCR) - Final
Nose Staph aureus MRSA
10/15/24 17:17 Anaerobic Culture - Preliminary
Abscess Culture pending. Anaerobic cultures are examined after 3
days incubation. Additional information to follow.
10/15/24 17:17 Wound Culture - Preliminary
Abscess No growth
Gram Stain - Preliminary
10/15/24 19:29 Anaerobic Culture - Preliminary
Hand - Right Culture pending. Anaerobic cultures are examined after 3
days incubation. Additional information to follow.
10/15/24 19:29 Wound Culture - Preliminary
Hand - Right No growth
Gram Stain - Preliminary
10/16/24 07:27 Blood Culture - Pending
Blood/Venous
10/16/24 06:55 Blood Culture - Pending
Blood/Venous
[2024-10-16] MEDS: LOVENOX 40 MG SC (18:09)
[2024-10-16] MEDS: TYLENOL 650 MG PO (22:26)
[2024-10-16 23:00] VITALS: BP 107/68
[2024-10-17] MEDS: TORADOL 10 MG IV ×3 (02:21→17:25)
[2024-10-17] MEDS: UNASYN IV ×3 (05:57→17:16)
[2024-10-17 07:55] VITALS: BP 92/49
--- NOTE | 2024-10-17 08:16 | W.PN.UPDATE ---
Addendum entered and electronically signed by Ephraim Fields MD 10/17/24 08:59:
Addendum to my previous note
OK to DC to home once cultures are finalized
Thanks
AMBER
Original Note:
Update Note
Progress Note Update
OK for DC on po antibx from my standpoint
Just have her do local wound care with twice daily Hibiclens soap and water wash--Followed by bacitracin dry sterile dressing
Please set up Outpt OT to minimize risk of stiffness
Have her start OT this Tuesday or Tuesday
Have her F/U with me as outpt in my office on Friday 10/19
thanks
YESSYMD
--- NOTE | 2024-10-17 08:40 | W.PN.HOSP.TC ---
Today's Communication/Plan
-
see bold
Assessment / Plan
Assessment / Plan
Pt seen and examined with nurse Judy Thibodeaux present at bedside for the entirety of the interview and physical exam:
Gen: NAD, AAOx3.
Eyes: EOMI, PERRLA, no scleral icterus.
Neck: supple.
CV: continues to remain RRR, +S1/S2, no m/r/g.
Resp: continues to remain CTAB, no rales, wheezes, or rhonchi.
Skin: remains R hand with C/D/I dressing
Neuro: CN 2-12 intact, non-focal.
Psych: Normal mood and affect.
10/15/24 19:29 Hand - Right Wound Culture - Preliminary
No growth
10/15/24 19:29 Hand - Right Gram Stain - Preliminary
10/15/24 17:17 Abscess Wound Culture - Preliminary
No growth
10/15/24 17:17 Abscess Gram Stain - Preliminary
10/16/24 07:27 Blood/Venous Blood Culture - Preliminary
No Growth in 24 hours- Final report to follow
10/16/24 06:55 Blood/Venous Blood Culture - Preliminary
No Growth in 24 hours- Final report to follow
10/16/24 09:07 Nose Nasal Screen MRSA (PCR) - Final
Staph aureus MRSA
10/15/24 17:17 Abscess Anaerobic Culture - Preliminary
Culture pending. Anaerobic cultures are examined after 3
days incubation. Additional information to follow.
10/15/24 19:29 Hand - Right Anaerobic Culture - Preliminary
Culture pending. Anaerobic cultures are examined after 3
days incubation. Additional information to follow.
MRI R hand:
1. SEVERE DIFFUSE CELLULITIS throughout the right hand and wrist.
2. SEVERE ACUTE INFECTIOUS MYOSITIS (most pronounced in the hypothenar muscles).
3. 2.8 cm ABSCESS extending from the palmar skin surface into the hypopharynx muscles.
4. Moderate-sized 4th MCP joint effusion suggesting SEPTIC ARTHRITIS.
5. Mild bone marrow signal abnormality in the proximal phalanx of the ring finger suggesting MILD ACUTE OSTEOMYELITIS.
6. Mild septic tenosynovitis in the flexor tendons of the ring and middle fingers.
Infected dog bite of the R hand (abscess/myositis/cellulitis/septic arthritis):
-s/p tetanus shot
-s/p I&D, debridement of abscess about the right palm and incision and drainage of septic arthritis of the ring metatarsophalangeal joint in OR on 10/15/24
-cont Unasyn as per ID
-PICC placement
-pain control
-follow cultures
FULL/SCDs
Anticipated Discharge: 24 - 48 hours
Subjective/Interval History
-
Date of Service: October 17, 2024
No new complaints.
Objective Data
-
Vital Signs:
Vital Signs
Temp Pulse Resp BP Pulse Ox
97.8 F 72 20 92/49 97
10/17/24 07:55 10/17/24 07:55 10/17/24 07:55 10/17/24 07:55 10/17/24 07:55
I&O
10/16/24 10/17/24 10/18/24
06:59 06:59 06:59
Intake Total 360 / 360 840 / 840
Balance 360 / 360 840 / 840
[2024-10-17] MEDS: TYLENOL 650 MG PO (11:26)
[2024-10-17 12:19] VITALS: BP 105/68
--- NOTE | 2024-10-17 13:26 | W.PN.ID1 ---
Date of Service
Date of Service: October 17, 2024
Today's Communication
Continue antibiotics.
Assessment / Plan
Myositis, 2.8 cm abscess, 4th mcp septic arthritis, proximal right finger osteo, tenosynovitis
Dog bite
- blood cultures x2
- cultures aerobic and anaerobic from draining wound
- mrsa screen positive
- s/p washout 10/15; findings notable for early osteomyelitis
- follow OR cultures
- plan to set up for course of IV antibiotics x 6 weeks - this is not feasible until 10/18. Patient in agreement with plan.
- PICC has been placed.
- continue unasyn pending OR cultures - to be reviewed 10/18
Chief Complaint
-: Other (cellulitis, myositis, septic joint)
Subjective / Review of Systems
Review of Systems: No Fever and No Chills
Vital Signs / Physical Exam
Vital Signs
Vital Signs
Temp Pulse Resp BP Pulse Ox
97.8 F 61 20 105/68 97
10/17/24 07:55 10/17/24 12:19 10/17/24 07:55 10/17/24 12:19 10/17/24 07:55
Physical Exam
Constitutional: No Acute Distress, Comfortable and Non-toxic
Head: Normocephalic
Eyes: Sclera Anicteric
Pulmonary: Non Labored
Gastrointestinal: Non Distended
Skin: Warm and Dry; Negative Rash or Jaundice
Wound: Other (Right wrist and hand wrapped in Vinay wrap.)
Neurological: Awake and Alert
Lines: PICC (Left upper extremity)
Objective Data
Lab Data
Lab Results
10/15/24 08:02
10/15/24 08:02
ESR 34 mm/hour (0-20) H 10/15/24 08:02
PT 16.1 Sec (11.4-14.6) H 10/15/24 08:02
INR 1.26 10/15/24 08:02
APTT 33.1 Sec (23.4-35.0) 10/15/24 08:02
Estimated Creat Clear 107 ml/min 10/15/24 08:02
Total Bilirubin 0.5 mg/dl (0.2-1.3) 10/14/24 16:19
AST 41 U/L (14-36) H 10/14/24 16:19
ALT 34 U/L (0-35) 10/14/24 16:19
Alkaline Phosphatase 101 U/L (38-126) 10/14/24 16:19
C-Reactive Protein 33.40 mg/L (0.0-10.00) H 10/15/24 08:02
Most recent labs reviewed.
Micro Results:
10/15/24 19:29 Wound Culture - Preliminary
Hand - Right No growth
Gram Stain - Preliminary
10/15/24 17:17 Wound Culture - Preliminary
Abscess No growth
Gram Stain - Preliminary
10/16/24 07:27 Blood Culture - Preliminary
Blood/Venous No Growth in 24 hours- Final report to follow
10/16/24 06:55 Blood Culture - Preliminary
Blood/Venous No Growth in 24 hours- Final report to follow
10/16/24 09:07 Nasal Screen MRSA (PCR) - Final
Nose Staph aureus MRSA
10/15/24 17:17 Anaerobic Culture - Preliminary
Abscess Culture pending. Anaerobic cultures are examined after 3
days incubation. Additional information to follow.
10/15/24 19:29 Anaerobic Culture - Preliminary
Hand - Right Culture pending. Anaerobic cultures are examined after 3
days incubation. Additional information to follow.
Care Review
Plan reviewed with: Physician (Hospitalist)
--- NOTE | 2024-10-17 13:33 | PTCARENOTE ---
Pt c/o unrelieved 5/10 pain throughout right hand. MD made aware, new order provided, see MAR. Will cont to monitor.
[2024-10-17] MEDS: DILAUDID 0.5 MG IV (13:42)
[2024-10-17 15:30] VITALS: BP 116/69
[2024-10-17] MEDS: LOVENOX 40 MG SC (17:15)
[2024-10-17 19:20] VITALS: BP 106/61
[2024-10-17 23:20] VITALS: BP 123/69
[2024-10-18] MEDS: TYLENOL 650 MG PO (00:11)
[2024-10-18] MEDS: UNASYN IV ×2 (00:11→05:59)
[2024-10-18 06:32] LABS: Hematocrit 33.3 % (37.0-47.0); Hemoglobin 11.2 g/dL (12.0-16.0); Mean Corp Hgb Conc. 33.6 g/dL (33.0-37.0); Mean Corpuscular Hgb 31.1 pg (27.0-31.0); Mean Corpuscular Volume 92.5 fL (81.0-99.0); Mean Platelet Volume 9.4 fL (7.4-10.4); Platelet Count 266 10^3/uL (130-400); Red Cell Dist. Width 11.9 % (11.5-14.5); White Blood Cell Count 7.2 10^3/uL (4.8-10.8)
[2024-10-18 07:09] LABS: Blood Urea Nitrogen 9 mg/dl (7-17); Calcium 8.7 mg/dl (8.4-10.2); Carbon Dioxide 26 mmol/L (22-30); Chloride 106 mmol/L (98-107); Estimated Creatinine Clearance 107 ml/min; Glucose 88 mg/dl (70-99); Sodium 136 mmol/L (135-145); eGFR > 60.00
[2024-10-18 07:30] VITALS: BP 106/62
--- NOTE | 2024-10-18 10:44 | W.PN.HOSP.TC ---
Today's Communication/Plan
-
see bold
Assessment / Plan
Assessment / Plan
Pt seen and examined with nurse Judy Thibodeaux present at bedside for the entirety of the interview and physical exam:
Gen: remains NAD, AAOx3.
Eyes: remains EOMI, PERRLA, no scleral icterus.
Neck: supple.
CV: RRR, +S1/S2, no m/r/g.
Resp: CTAB, no rales, wheezes, or rhonchi.
Skin: continues to remain R hand with C/D/I dressing
Neuro: CN 2-12 intact, non-focal.
Psych: Normal mood and affect.
10/15/24 17:17 Abscess Anaerobic Culture - Preliminary
Culture pending. Anaerobic cultures are examined after 3
days incubation. Additional information to follow.
10/15/24 17:17 Abscess Wound Culture - Preliminary
No growth
10/15/24 17:17 Abscess Gram Stain - Preliminary
10/15/24 19:29 Hand - Right Anaerobic Culture - Preliminary
Culture pending. Anaerobic cultures are examined after 3
days incubation. Additional information to follow.
10/15/24 19:29 Hand - Right Wound Culture - Preliminary
No growth
10/15/24 19:29 Hand - Right Gram Stain - Preliminary
10/16/24 07:27 Blood/Venous Blood Culture - Preliminary
No Growth in 48 hours- Final report to follow
10/16/24 06:55 Blood/Venous Blood Culture - Preliminary
No Growth in 48 hours- Final report to follow
10/16/24 09:07 Nose Nasal Screen MRSA (PCR) - Final
Staph aureus MRSA
MRI R hand:
1. SEVERE DIFFUSE CELLULITIS throughout the right hand and wrist.
2. SEVERE ACUTE INFECTIOUS MYOSITIS (most pronounced in the hypothenar muscles).
3. 2.8 cm ABSCESS extending from the palmar skin surface into the hypopharynx muscles.
4. Moderate-sized 4th MCP joint effusion suggesting SEPTIC ARTHRITIS.
5. Mild bone marrow signal abnormality in the proximal phalanx of the ring finger suggesting MILD ACUTE OSTEOMYELITIS.
6. Mild septic tenosynovitis in the flexor tendons of the ring and middle fingers.
Infected dog bite of the R hand (abscess/myositis/cellulitis/septic arthritis):
-s/p tetanus shot
-s/p I&D, debridement of abscess about the right palm and incision and drainage of septic arthritis of the ring metatarsophalangeal joint in OR on 10/15/24
-cont Unasyn as per ID
-PICC placed 10/17/24
-pain control
-follow cultures
FULL/SCDs
Anticipated Discharge: Within 24 hours
Subjective/Interval History
-
Date of Service: October 18, 2024
No new complaints.
Objective Data
-
Labs:
Laboratory Results
10/18/24
06:07
WBC 7.2
Hgb 11.2 L
Hct 33.3 L
Plt Count 266
Sodium 136
Potassium 4.0
Chloride 106
Carbon Dioxide 26
BUN 9
Creatinine 0.7
Glucose 88
Calcium 8.7
Vital Signs:
Vital Signs
Temp Pulse Resp BP Pulse Ox
97.6 F 54 16 106/62 97
10/18/24 07:30 10/18/24 07:30 10/18/24 07:30 10/18/24 07:30 10/18/24 07:30
I&O
10/17/24 10/18/24 10/19/24
06:59 06:59 06:59
Intake Total 840 / 840 1200 / 1200
Balance 840 / 840 1200 / 1200
--- NOTE | 2024-10-18 12:03 | CM ---
Addendum entered by Anya Cosby 10/18/24 15:19:
[facility] requested that patient receive her ABX dose before she is discharged to home tomorrow
Addendum entered by Anya Cosby 10/18/24 15:09:
Plan: Discharge to home tomorrow with [facility]
Original Note:
Per Attending, patient needs home infusion of Antibiotics
Prescription, Clinicals, demographic and insurance information faxed to [facility]; for review
[2024-10-18] MEDS: INVANZ 60 MG IV (12:10)
--- NOTE | 2024-10-18 13:01 | PTCARENOTE ---
Pt complained and tingling in R pinky and R ring finger, surgeon made aware. No new orders provided.
[2024-10-18] MEDS: TORADOL 10 MG IV (13:18)
[2024-10-18 15:45] VITALS: BP 108/64
--- NOTE | 2024-10-18 16:56 | W.PN.ID1 ---
Date of Service
Date of Service: October 18, 2024
Today's Communication
- plan 6 weeks of ertapenem
- has PICC line
- follow up with ortho hand
Assessment / Plan
Myositis, 2.8 cm abscess, 4th mcp septic arthritis, proximal right finger osteo, tenosynovitis
Dog bite
- blood cultures x2
- cultures aerobic and anaerobic - no growth to date
- OR cultures no growth to date
- plan 6 weeks of ertapenem
- has PICC line
- follow up with ortho hand
Chief Complaint
-: Other (cellulitis, myositis, septic joint)
Subjective / Review of Systems
afebrile
bp stable
getting teaching with [facility] when I enter
some tingeling of the 4th and 5th digits, no swelling
Vital Signs / Physical Exam
Vital Signs
Vital Signs
Temp Pulse Resp BP Pulse Ox
98.1 F 81 16 108/64 99
10/18/24 15:45 10/18/24 15:45 10/18/24 15:45 10/18/24 15:45 10/18/24 15:45
Physical Exam
Constitutional: No Acute Distress
Cardiovascular: Regular Rate and S1/S2; Negative Murmur or Rub
Pulmonary: Clear and Symmetric; Negative Wheezes or Rales
Gastrointestinal: Soft, Non Tender, Non Distended and Normal Bowel Sounds
Skin: Warm and Dry; Negative Rash or Jaundice
Lines: PICC
Objective Data
Lab Data
Lab Results
10/18/24 06:07
10/18/24 06:07
ESR 34 mm/hour (0-20) H 10/15/24 08:02
PT 16.1 Sec (11.4-14.6) H 10/15/24 08:02
INR 1.26 10/15/24 08:02
APTT 33.1 Sec (23.4-35.0) 10/15/24 08:02
Estimated Creat Clear 107 ml/min 10/18/24 06:07
Total Bilirubin 0.5 mg/dl (0.2-1.3) 10/14/24 16:19
AST 41 U/L (14-36) H 10/14/24 16:19
ALT 34 U/L (0-35) 10/14/24 16:19
Alkaline Phosphatase 101 U/L (38-126) 10/14/24 16:19
C-Reactive Protein 33.40 mg/L (0.0-10.00) H 10/15/24 08:02
Most recent labs reviewed.
Micro Results:
10/15/24 17:17 Anaerobic Culture - Preliminary
Abscess NO ANAEROBES ISOLATED
10/15/24 19:29 Anaerobic Culture - Preliminary
Hand - Right Culture pending. Anaerobic cultures are examined after 3
days incubation. Additional information to follow.
10/15/24 17:17 Wound Culture - Preliminary
Abscess No growth
Gram Stain - Preliminary
10/15/24 19:29 Wound Culture - Preliminary
Hand - Right No growth
Gram Stain - Preliminary
10/16/24 07:27 Blood Culture - Preliminary
Blood/Venous No Growth in 48 hours- Final report to follow
10/16/24 06:55 Blood Culture - Preliminary
Blood/Venous No Growth in 48 hours- Final report to follow
10/16/24 09:07 Nasal Screen MRSA (PCR) - Final
Nose Staph aureus MRSA
[2024-10-18] MEDS: LOVENOX 40 MG SC (17:34)
[2024-10-18 23:37] VITALS: BP 99/60
[2024-10-19 07:25] VITALS: BP 92/48
--- NOTE | 2024-10-19 07:49 | W.PN.UPDATE ---
Update Note
Progress Note Update
Comfortable
VSS
R hand NVI
Continue wound care at home as instructed
Antibx as per ID
Have F/U with me as outpt next Tue or Tue
thanks
GGMD
--- NOTE | 2024-10-19 08:12 | W.PN.HOSP.TC ---
Today's Communication/Plan
-
d/c
Assessment / Plan
Assessment / Plan
Pt seen and examined with nurse Cooper Epps present at bedside for the entirety of the interview and physical exam:
Gen: continues to remain NAD, AAOx3.
Eyes: continues to remain EOMI, PERRLA, no scleral icterus.
Neck: supple.
CV: RRR, +S1/S2, no m/r/g.
Resp: CTAB anteriorly, no rales, wheezes, or rhonchi.
Skin: R hand with C/D/I dressing
Neuro: CN 2-12 intact, non-focal.
Psych: Normal mood and affect.
10/16/24 06:55 Blood/Venous Blood Culture - Preliminary
No Growth in 72 hours- Final report to follow
10/15/24 17:17 Abscess Anaerobic Culture - Preliminary
NO ANAEROBES ISOLATED
10/15/24 19:29 Hand - Right Anaerobic Culture - Preliminary
Culture pending. Anaerobic cultures are examined after 3
days incubation. Additional information to follow.
10/15/24 17:17 Abscess Wound Culture - Preliminary
No growth
10/15/24 17:17 Abscess Gram Stain - Preliminary
10/15/24 19:29 Hand - Right Wound Culture - Preliminary
No growth
10/15/24 19:29 Hand - Right Gram Stain - Preliminary
10/16/24 07:27 Blood/Venous Blood Culture - Preliminary
No Growth in 48 hours- Final report to follow
10/16/24 09:07 Nose Nasal Screen MRSA (PCR) - Final
Staph aureus MRSA
MRI R hand:
1. SEVERE DIFFUSE CELLULITIS throughout the right hand and wrist.
2. SEVERE ACUTE INFECTIOUS MYOSITIS (most pronounced in the hypothenar muscles).
3. 2.8 cm ABSCESS extending from the palmar skin surface into the hypopharynx muscles.
4. Moderate-sized 4th MCP joint effusion suggesting SEPTIC ARTHRITIS.
5. Mild bone marrow signal abnormality in the proximal phalanx of the ring finger suggesting MILD ACUTE OSTEOMYELITIS.
6. Mild septic tenosynovitis in the flexor tendons of the ring and middle fingers.
Infected dog bite of the R hand (abscess/myositis/cellulitis/septic arthritis/tenosynovitis/OM):
-s/p tetanus shot
-s/p I&D, debridement of abscess about the right palm and incision and drainage of septic arthritis of the ring metatarsophalangeal joint in OR on 10/15/24
-was on Unasyn, now transitioned to Invanz for 6 weeks as per ID
-PICC placed 10/17/24
-pain control
Palpitations:
-Check ECG
FULL/SCDs
Total time spent on d/c = 31 min. This included today's physical exam, progress note, review of laboratory and diagnostic data, preparation of discharge documents and prescriptions, and discussions about the pt's hospital course and discharge plan
with the patient and other medical officer involved in the patient's care.
Anticipated Discharge: Today
Subjective/Interval History
-
Date of Service: October 19, 2024
Patient states that when she lays on her left side she can feel her heartbeat. States that she does not feel it is out of rhythm.
Objective Data
-
Vital Signs:
Vital Signs
Temp Pulse Resp BP Pulse Ox
97.9 F 59 16 92/48 98
10/19/24 07:25 10/19/24 07:25 10/19/24 07:25 10/19/24 07:25 10/19/24 07:25
I&O
10/18/24 10/19/24 10/20/24
06:59 06:59 06:59
Intake Total 1200 / 1200 1480 / 1480
Balance 1200 / 1200 1480 / 1480
--- NOTE | 2024-10-19 10:03 | CM ---
Met with patient this morning; she reported that family will transport her home
Plan: Discharge to home today after daily antibiotic dose is administered; home infusion services coordinated with [facility]
[2024-10-19] MEDS: INVANZ 60 MG IV (11:54)
--- NOTE | 2024-10-19 13:45 | W.PN.ID1 ---
Date of Service
Date of Service: October 19, 2024
Today's Communication
- plan 6 weeks of ertapenem
- has PICC line
- follow up with ortho hand
Assessment / Plan
Myositis, 2.8 cm abscess, 4th mcp septic arthritis, proximal right finger osteo, tenosynovitis
Dog bite
- blood cultures x2
- cultures aerobic and anaerobic - no growth to date
- OR cultures no growth to date
- plan 6 weeks of ertapenem
- has PICC line
- follow up with ortho hand
Chief Complaint
-: Other (cellulitis, myositis, septic joint)
Subjective / Review of Systems
afebrile
bp stable
tolerating current therapies
discussed nasal colonization with MRSA with patient. cultures from the OR without prior antibiotics which cover for MRSA, bite infections most often reflect the oral carmen of the animal which bit the human rather than the skin carmen of the human,
if part of the hand infection included mrsa would have expected OR cultures to reveal this isolate, additionally patient with clinical improvement on the current regimen
Vital Signs / Physical Exam
Vital Signs
Vital Signs
Temp Pulse Resp BP Pulse Ox
97.9 F 59 16 92/48 98
10/19/24 07:25 10/19/24 07:25 10/19/24 07:25 10/19/24 07:25 10/19/24 07:25
Physical Exam
Constitutional: No Acute Distress
Cardiovascular: Regular Rate
Pulmonary: Symmetric and Non Labored
Gastrointestinal: Non Distended
Skin: Dry; Negative Rash or Jaundice
Wound: Other (deferred dressing take down)
Lines: PICC
Objective Data
Lab Data
Lab Results
10/18/24 06:07
10/18/24 06:07
ESR 34 mm/hour (0-20) H 12/23/24 08:02
PT 16.1 Sec (11.4-14.6) H 10/15/24 08:02
INR 1.26 10/15/24 08:02
APTT 33.1 Sec (23.4-35.0) 10/15/24 08:02
Estimated Creat Clear 107 ml/min 10/18/24 06:07
Total Bilirubin 0.5 mg/dl (0.2-1.3) 10/14/24 16:19
AST 41 U/L (14-36) H 10/14/24 16:19
ALT 34 U/L (0-35) 10/14/24 16:19
Alkaline Phosphatase 101 U/L (38-126) 10/14/24 16:19
C-Reactive Protein 33.40 mg/L (0.0-10.00) H 10/15/24 08:02
Most recent labs reviewed.
Micro Results:
10/15/24 19:29 Anaerobic Culture - Preliminary
Hand - Right Culture pending. Anaerobic cultures are examined after 3
days incubation. Additional information to follow.
10/16/24 07:27 Blood Culture - Preliminary
Blood/Venous No Growth in 72 hours- Final report to follow
10/16/24 06:55 Blood Culture - Preliminary
Blood/Venous No Growth in 72 hours- Final report to follow
10/15/24 17:17 Anaerobic Culture - Preliminary
Abscess NO ANAEROBES ISOLATED
10/15/24 17:17 Wound Culture - Preliminary
Abscess No growth
Gram Stain - Preliminary
10/15/24 19:29 Wound Culture - Preliminary
Hand - Right No growth
Gram Stain - Preliminary
10/16/24 09:07 Nasal Screen MRSA (PCR) - Final
Nose Staph aureus MRSA
--- NOTE | 2024-10-19 14:31 | W.DCSUMMARY ---
Discharge Summary
Discharge Data
Date of Admission: 10/14/24
Date of Discharge: 10/19/24
-
Pending Results: No
Hospital Course
Primary diagnoses:
Infected dog bite of the R hand (abscess/myositis/cellulitis/septic arthritis/tenosynovitis/osteomyelitis)
Secondary diagnoses:
None
Consults:
Infectious disease
Orthopedics
Imaging:
MRI R hand:
1. SEVERE DIFFUSE CELLULITIS throughout the right hand and wrist.
2. SEVERE ACUTE INFECTIOUS MYOSITIS (most pronounced in the hypothenar muscles).
3. 2.8 cm ABSCESS extending from the palmar skin surface into the hypopharynx muscles.
4. Moderate-sized 4th MCP joint effusion suggesting SEPTIC ARTHRITIS.
5. Mild bone marrow signal abnormality in the proximal phalanx of the ring finger suggesting MILD ACUTE OSTEOMYELITIS.
6. Mild septic tenosynovitis in the flexor tendons of the ring and middle fingers.
Hospital course: 24-year-old female who presented with a chief complaint of animal bite and abscess as outlined in the H&P done on admission. Imaging above. The patient received a tetanus shot. She underwent I&D, debridement of abscess about the
right palm and incision and drainage of septic arthritis of the ring metatarsophalangeal joint in OR on 10/15/24. The patient was on IV Unasyn and then transitioned to Invanz for 6 weeks as per ID. She was discharged in medically stable condition.
Discharge Plan
-
Patient Disposition: Home (Routine Discharge)
Discharge Diagnosis/Procedures: Infected dog bite of the R hand (abscess/myositis/cellulitis/septic arthritis/tenosynovitis/osteomyelitis)
Condition: Good
Diet: No restrictions
Activity: As tolerated
Driving Restrictions: As prior to admission
Referrals:
Ephraim Fields MD [Active] - in less than 1 week
NONE,* [Family Provider] - in less than 1 week
Prescriptions:
New
Ertapenem [Invanz] 1000 MG
0.9% Sodium Chloride [Nss] 50 ML
120 mls/hr IV Q24H
Ordered By: Sergio Babb MD
Last Taken: 10/19/24 11:54 60 mls
Discontinued
amoxicillin-pot clavulanate 875-125 mg tablet
1 tab PO BID
Rx Instructions:
10/15/24: Per patient, no doses taken
Discharge Orders:
Discharge Patient (As Directed); Ordered 10/19/24
Ordered By: Sergio Babb
Discharge Date and Time
Print Language: [place]
== END 2024-10-19 14:45 | disposition home or self-care (01) | DRG 580 ==
LOC: 3 WEST ACU 20:42
PROVIDERS: Emergency Medicine; Orthopaedic Surgery; ADMITTING PHYSICIAN Internal Medicine; ATTENDING PHYSICIAN Internal Medicine; CONSULT PHYSICIAN Student in an Organized Health Care Education/Training Program; EMERGENCY PHYSICIAN Emergency Medicine; OTHER PHYSICIAN Orthopaedic Surgery Hand Surgery
PROC: 0JBJ0ZZ Excision of Right Hand Subcutaneous Tissue and Fascia, Open Approach (ICD-10-PCS; 2024-10-15)
DX: L03.113 Cellulitis of right upper limb (principal); L02.511 Cutaneous abscess of right hand; M60.000 Infective myositis, unspecified right arm; M86.141 Other acute osteomyelitis, right hand; W54.0XXA Bitten by dog, initial encounter; M79.89 Other specified soft tissue disorders; S61.451A Open bite of right hand, initial encounter
CPT/HCPCS: 71045; 73090; 73120; 73223; 80048; 80053; 85025; 85027; 85610; 85652; 85730; 86140; 87040; 87070; 87075; 87147; 87205; 87641; 90471; 90715; 93005; 96365; 96375; 99284; A9575; J1335